=== PATIENT | male | born 1935 | race Caucasian/White ===

== ENCOUNTER 2016-07-22 09:28 | Day surgery (SDC) | payer MEDICARE, BC ==
[~2016-07-22 09:28] MED LIST: LIDOCAINE HCL 1% MPF SOL ONE; PROPOFOL 500 MG/50 ML EMU IV ONE
[2016-07-22 12:01] VITALS: BP 129/61; PULSE 70; RESP 18; TEMP 96.8; O2SAT 97
== END 2016-07-22 12:40 | disposition home or self-care (01) | DRG 951 ==
LOC: SURG 09:28
PROVIDERS: ATTEND Surgery
DX: Z12.11 Encounter for screening for malignant neoplasm of colon (principal); D12.2 Benign neoplasm of ascending colon; Z86.010 Personal history of colon polyps; Z80.0 Family history of malignant neoplasm of digestive organs; K57.30 Diverticulosis of large intestine without perforation or abscess without bleeding; D12.8 Benign neoplasm of rectum
CPT/HCPCS: J2001; J2704